=== PATIENT | male | born 1955 | race Caucasian/White ===

== ENCOUNTER 2016-08-14 11:10 | Day surgery (SDCO) | payer MEDICARE, OTHER ==
[~2016-08-14] VITALS: Ht 170.2 cm; Wt 67.7 kg
[2016-08-14 12:11] LABS: BASOPHIL 0.1 % (0-2); EOSINOPHIL 0 % (0-5); HCT 51.2 % (42.0-52.0); HGB 17.5 g/dl (13.2-18.0); LYMPHOCYTE 10.5 % (15-48); MCH 31.4 pg (25.0-31.0); MCHC 34.2 g/dL (32.0-36.0); MCV 91.9 fL (78.0-100.0); MONOCYTE 7.6 % (0-12); MPV 11.3 fL (6.0-9.5); NEUTROPHIL 81.8 % (41-80); PLT 139 K/uL (150-400); RBC 5.57 M/uL (4.70-6.00); RDW 14.4 % (11.5-14.0); WBC 12.4 K/uL (4.0-10.5)
[2016-08-14 12:19] LABS: ALBUMIN 4.4 g/dL (3.5-5.0); BILIRUBIN - TOTAL 0.5 mg/dL (0.1-1.0); CREATININE 0.6 mg/dL (0.7-1.2); GLOBULIN (CALCULATION) 3.2 g/dL (2.2-4.2); TOTAL PROTEIN 7.6 g/dL (6.4-8.3)
[2016-08-14 12:25] LABS: ACETAMINOPHEN (TYLENOL) < 5.0 ug/mL (10.0-30.0); ALCOHOL (ETOH) MEDICAL NONE DETECTED; SALICYLATE < 6 ug/mL (0-300)
[2016-08-14 12:28] LABS: LACTIC ACID 1.9 mmol/L (0.5-2.2)
[2016-08-14 13:51] LABS: BILIRUBIN NEGATIVE (NEGATIVE); BLOOD NEGATIVE Ery/uL (NEGATIVE); CLARITY CLEAR (CLEAR); COLOR YELLOW (YELLOW); GLUCOSE (U) NORMAL (NORMAL); KETONE (U) NEGATIVE (NEGATIVE); LEUKOCYTES NEGATIVE Leu/uL (NEGATIVE); NITRITE NEGATIVE (NEGATIVE); PROTEIN NEGATIVE (NEGATIVE); SPECIFIC GRAVITY 1.015 (1.001-1.030)
[2016-08-14 14:01] LABS: AMPHETAMINES NEGATIVE (NEGATIVE); BARBITURATES NEGATIVE (NEGATIVE); BENZODIAZEPINES POSITIVE (NEGATIVE); COCAINE NEGATIVE (NEGATIVE); MARIJUANA (THC) NEGATIVE (NEGATIVE); METHADONE NEGATIVE (NEGATIVE); TRICYCLIC ANTIDEPRESSANT NEGATIVE (NEGATIVE)
[2016-08-15 06:06] LABS: HCT 34.8 % (42.0-52.0); MCH 31.9 pg (25.0-31.0); MCHC 35.1 g/dL (32.0-36.0); MCV 90.9 fL (78.0-100.0); RBC 3.83 M/uL (4.70-6.00); RDW 13.9 % (11.5-14.0); WBC 12.2 K/uL (4.0-10.5)
[2016-08-15 06:37] LABS: ALBUMIN 3.8 g/dL (3.5-5.0); BILIRUBIN - TOTAL 0.6 mg/dL (0.1-1.0); CREATININE 0.7 mg/dL (0.7-1.2); MAGNESIUM 1.42 mg/dL (1.40-2.10); POTASSIUM 3.8 mmol/L (3.5-5.1); TOTAL PROTEIN 6.8 g/dL (6.4-8.3)
[2016-08-15 06:52] LABS: HGB 12.2 g/dl (13.2-18.0)
--- NOTE | 2016-08-15 12:30 | NUR ---
PATIENT IS STATING THAT HE WANTS TO GO SMOKE, INFORMED PATIENT THAT THIS WAS A NON SMOKING FACILITY AND THAT HE COULD NO GO OUT AND SMOKE, HE STATED THAT HE WANTED TO LEAVE, INFORMED MD, PATIENT BEING DISCHARGED, PATIENT PULLED OUT HIS IV AND TOOK OFF HIS MONITORS AND REFUSED ANY TREATMENT, WAITING ON DISCHARGE INSTRUCTIONS.
[2016-08-15] MEDS ORDERED: NEURONTIN300 MG PO (13:38)
[2016-08-15] MEDS ORDERED: NORCO 10-325 T1 EACH PO (13:39)
[2016-08-15] MEDS ORDERED: XANAX1 MG PO (13:39)
[2016-08-15] MEDS ORDERED: CELEXA40 MG PO (13:40)
[2016-08-15] MEDS ORDERED: QUETIAPINE FUMA50 MG PO (13:40)
== END 2016-08-15 13:39 | disposition home or self-care (01) ==
LOC: FER 11:10 → FMS 15:15
PROVIDERS: Internal Medicine; ADMIT Internal Medicine Nephrology
DX: G92 Toxic encephalopathy (principal); G89.29 Other chronic pain; F17.210 Nicotine dependence, cigarettes, uncomplicated; Z79.899 Other long term (current) drug therapy
CPT/HCPCS: 36415; 36600; 70450; 71010; 80053; 80305; 81003; 82803; 83605; 83735; 84484; 85025; 93005; 94010; G0378; G0480